=== PATIENT | male | born 1965 | race Caucasian/White ===

== ENCOUNTER 2022-07-16 08:57 | Emergency (ER) | payer MEDICARE ==
[~2022-07-16 08:57] MED LIST: AMOXICILLIN500 MG PO; COZAAR100 MG PO; GLYBURIDE2.5 MG PO; HYDRALAZINE 50M50 MG PO; LOPRESSOR25 MG PO; METFORMIN HCL750 MG PO; NORVASC5 MG PO; SODIUM BICARBO650 M1 PO
[2022-07-16 10:23] LABS: BASOPHIL 0.3 % (0-2); EOSINOPHIL 0.2 % (0-5); HCT 25.7 % (42.0-52.0); HGB 8.6 g/dl (13.2-18.0); LYMPHOCYTE 6.4 % (15-48); MCH 31.6 pg (25.0-31.0); MCHC 33.5 g/dL (32.0-36.0); MCV 94.5 fL (78.0-100.0); MONOCYTE 5.5 % (0-12); MPV 9.2 fL (6.0-9.5); NRBC 0; PLT 241 K/uL (150-400); RBC 2.72 M/uL (4.70-6.00); RDW 13.8 % (11.5-14.0); WBC 14.9 K/uL (4.0-10.5)
[2022-07-16 10:38] LABS: BILIRUBIN NEGATIVE (NEGATIVE); BLOOD NEGATIVE Ery/uL (NEGATIVE); CLARITY CLEAR (CLEAR); COLOR YELLOW (YELLOW); GLUCOSE (U) NORMAL (NORMAL); LEUKOCYTES NEGATIVE Leu/uL (NEGATIVE); NITRITE NEGATIVE (NEGATIVE); PROTEIN 2+ mg/dL (NEGATIVE); UROBILINOGEN 0.2 mg/dL (0.2-1.0)
[2022-07-16 10:52] LABS: BILIRUBIN - TOTAL 0.2 mg/dL (0.2-1.0); BUN/CREAT RATIO (CALC) 9.8 RATIO; CREATININE 7.34 mg/dL (0.67-1.17); GLOBULIN (CALCULATION) 4.5 g/dL; POTASSIUM 5.5 mmol/L (3.5-5.1); TOTAL PROTEIN 7.5 g/dL (6.4-8.2)
== END 2022-07-16 14:20 | disposition home or self-care (01) ==
LOC: FER 08:57
PROVIDERS: Emergency Medicine
DX: E11.649 Type 2 diabetes mellitus with hypoglycemia without coma (principal); E11.22 Type 2 diabetes mellitus with diabetic chronic kidney disease; I12.0 Hypertensive chronic kidney disease with stage 5 chronic kidney disease or end stage renal disease; N18.6 End stage renal disease; F17.200 Nicotine dependence, unspecified, uncomplicated; Z28.310 Unvaccinated for COVID-19
CPT/HCPCS: 36415; 36600; 80053; 81001; 82803; 85025; 99285